=== PATIENT | male | born 1995 | race Caucasian/White ===

== ENCOUNTER 2017-12-21 11:49 | Emergency (ER) | payer OTHER ==
[2017-12-21 11:52] VITALS: BP 135/87
--- NOTE | 2017-12-21 12:23 | EDPHY ---
General Time Seen by Provider: 12/21/17 12:13 Narrative: CHIEF COMPLAINT: I cut my arm HISTORY OF PRESENT ILLNESS: Patient presents by private vehicle with complaints of right arm laceration. He states that he was moving sheet rock into a truck when he accidentally cut his right forearm with a piece of steel framing. This happened just prior to arrival. This is on the volar aspect right arm. It was moderately painful to time. No pain now. No numbness, tingling or weakness. Bleeding stopped with simple pressure. Tetanus status questionable. He has no injury elsewhere. He denies any attempt to harm self with this. No other associated complaints or modifying factors. TIME OF INJURY: Less than 1 hr prior to arrival TETANUS STATUS: Uncertain MEDICAL/SURGICAL/SOCIAL HISTORY: Uncomplicated REVIEW OF SYSTEMS: Ten systems reviewed and are negative unless otherwise noted in the HPI EXAMINATION General Appearance: Alert, no distress Head: normocephalic, atraumatic Cardiovascular: Symmetric radial pulses 2+. Brisk cap refill the fingers right hand. No cyanosis or pallor Neurological: A&O, sensory symmetric, strength symmetric Skin: Warm and dry, no rash. Laceration to the right forearm, volar measuring 4 cm. No pulsatile bleeding. No foreign body. No exposure of the deep tissue structures Extremities: Minimal tenderness over the area of laceration of the right forearm. Full range of motion of the shoulders, elbows and wrists symmetrically. All compartments are soft. DIFFERENTIAL DIAGNOSES: Including but not limited to laceration, laceration complication, laceration foreign body, laceration with deep tissue injury MDM: 12:30 p.m. Accidental laceration to the right volar forearm. This occurred just prior to arrival. He is neuro intact distally. No foreign body. No pulsatile bleeding. Tdap in ED updated here. I have anesthetize the wound. Irrigate re- examine. 12:45 p.m. Wound has been copiously irrigated I re-examine. No foreign body. Closed with good approximation. Tolerated well. Neuro intact distally. We discussed wound care. We discussed Tdap booster here. We discussed elevation and rest for the next few days for we discussed ED precautions for signs of infection. We discussed return here in 10 days for suture removal. I have answered all his questions. He is discharged home stable condition. PROCEDURE: Laceration repair Consent: Verbal Location: Right forearm, volar Length of repair: 4 cm Complexity: Complex Layer involvement: Single layer Anesthesia: Local. 0.5% Marcaine with epinephrine, 5 mL Irrigation: Extensive Debridement: None Procedure description: Following good anesthesia, the wound was copiously irrigated. Wound bed was explored with a sterile glove, and there is no foreign body noted. No injury to the deep tissue structures. Wound borders were approximated well with good hemostasis. Tolerated well without complication. Suture/Staple material: 4-0 prolene, 6 simple interrupted sutures. Wound care: Routine as discussed Suture/Staple removal: 10 Days SUPERVISION: This patient was independently evaluated without direct involvement of or examination by the attending physician. ED Precautions: Worsening pain. Erythema, edema, cyanosis, pallor, paresthesia or anesthesia. - Diagnostics Imaging: Discussed imaging studies w/ [employer] Radiologist, I viewed and interpreted images myself - History History Review: I reviewed the patient's medical records Smoking Status: Former smoker - Objective Vital Signs: Initial Vital Signs Temperature (C) 97.9 F 12/21/17 11:51 Heart Rate 87 12/21/17 11:51 Respiratory Rate 18 12/21/17 11:51 Blood Pressure 135/87 H 12/21/17 11:51 O2 Sat (%) 97 12/21/17 11:51 O2 Delivery Mode Room Air Allergies/Adverse Reactions: No Known Allergies Allergy (Unverified 12/21/17 11:50) Home Medications: Medication Instructions Recorded NK [No Known Home Meds] 12/21/17 Medications Given: Discontinued Medications Diphtheria/Tetanus/Acell Pertussis (Boostrix) 0.5 ml IM .ONCE ONE Stop: 12/21/17 12:26 Last Admin: 12/21/17 12:27 Dose: 0.5 ml Departure - Departure Disposition: Home, Routine, Self-Care Clinical Impression: Laceration of forearm, right Qualifiers: Encounter type: initial encounter Qualified Code(s): S51.811A - Laceration without foreign body of right forearm, initial encounter Condition: Good Instructions: Laceration (ED), Tdap and Td Vaccines for Adults (ED) Additional Instructions: 1. Thin layer of bacitracin once daily for the next 2 days 2. Keep the wound covered while showering for the next 3 days 3. Daily wound care as discussed 4. Return here for suture removal in 7-10 days 5. Return here for signs of infection as discussed including warmth, redness, fever, drainage from the site 6. return here for increasing pain surrounding the laceration 7. Do not submerge the wound in any water, hot tub, swimming pool until sutures removed Referrals: Physician,Emergency Dept, MD [Medical Doctor] - As per Instructions (7-10 days)
[2017-12-21] MEDS: TDAP ADULT 0.5 ML INJ (BOOSTRIX) IM ONE (12:27)
== END 2017-12-21 13:00 | disposition home or self-care (01) ==
PROC: 0HQDXZZ Repair Right Lower Arm Skin, External Approach (ICD-10-PCS; principal; 2017-12-21)
DX: S51.811A Laceration without foreign body of right forearm, initial encounter (principal); W26.8XXA Contact with other sharp object(s), not elsewhere classified, initial encounter; Y93.H9 Activity, other involving exterior property and land maintenance, building and construction; Y99.0 Civilian activity done for income or pay